=== PATIENT | male | born 1955 | race Caucasian/White ===

== ENCOUNTER 2021-03-14 08:02 | Emergency (ER) | payer MEDICARE, SELFPAY ==
[2021-03-14 08:11] VITALS: BP 117/95; PULSE 66; RESP 16; TEMP 36.8; O2SAT 99
--- NOTE | 2021-03-14 08:18 | ED.WOUNDLAC ---
HPI - Wound/Laceration General Chief Complaint: Wound/Laceration Stated Complaint: FINGER LACERATION Time Seen by Provider: 03/14/21 08:10 Source: patient and RN notes reviewed History of Present Illness HPI narrative: Patient is a 65-year-old male who presents the urgent care with complaints of a laceration to the right third digit. Patient states that he was doing dishes last night and cut himself with a glass. Patient states that he has been putting gauze on it and it continues to bleed. No other acute complaints or injuries. No acute distress noted. Patient aware of the plan of care. Some parts of this dictation were generated by voice recognition software and may contain typographical and/or grammatical inaccuracies. Related Data Home Medications Medication Instructions Recorded Confirmed aspirin 81 mg tablet,delayed 81 mg PO DAILY 11/25/19 release Allergies Allergy/AdvReac Type Severity Reaction Status Date / Time No Known Allergies Allergy Mild Unverified 08/21/17 08:20 Review of Systems Review of Systems: Narrative: CONSTITUTIONAL: Denies fever, chills, or sweats. EYES: Denies visual changes, redness, or discharge. ENT: Denies rhinorrhea, congestion, sore throat, or otalgia. CARDIOVASCULAR: Denies chest pain, palpitations, or edema. RESPIRATORY: Denies cough or dyspnea. GASTROINTESTINAL: Denies abdominal pain, nausea, vomiting, or diarrhea. GENITOURINARY: Denies dysuria or hematuria. SKIN: Reports a laceration to the right third digit MUSCULOSKELETAL: Denies back pain, joint pain, or myalgia. NEUROLOGIC: Denies headache, numbness, or weakness. All other systems reviewed are negative, except as documented in HPI. [facility] Past Medical History Medical History Hyperlipidemia Hypertension Family History Family History Mother Cerebrovascular accident, Onset Age: 89 Father Family history of malignant neoplasm, Onset Age: 64 Social History Social History Smoking status: Never smoker Alcohol intake: current Comments At the time of my signature, I reviewed and agree with the nursing past medical, surgical, social, and family history. There is no relevant family history pertinent to the patient complaint. Exam Narrative: Exam Narrative: GENERAL: This is a well-nourished, well-developed patient, in no apparent distress. HEAD: normocephalic, atraumatic. EYES: PERRL. Sclera clear/white. Vision is grossly intact. EARS: External ears normal NOSE: External nose normal with no obvious nasal discharge, nares without redness, no rhinorrhea. THROAT: Mucous membranes moist NECK: Neck supple SKIN: 1 cm avulsed near the DIP of the right third digit. Warm, intact with no suspicious lesions or rash, good texture and turgor. NEURO: awake, alert, and oriented to person, place and time. There were no obvious focal neurologic abnormalities. EXTREMITIES: No clubbing, cyanosis, or edema. Capillary refill less than 2 seconds to right upper extremity with positive strong right radial pulse. Course Vital Signs Vital signs: Vital Signs Temperature 98.2 F 03/14/21 08:11 Pulse Rate 66 03/14/21 08:11 Respiratory Rate 16 03/14/21 08:11 Blood Pressure 117/95 H 03/14/21 08:11 Pulse Oximetry 99 03/14/21 08:11 Temperature 98.2 F 03/14/21 08:11 Pulse Rate 66 03/14/21 08:11 Respiratory Rate 16 03/14/21 08:11 Blood Pressure 117/95 H 03/14/21 08:11 Pulse Oximetry 99 03/14/21 08:11 Reviewed?patient is informed that they may have pre-hypertension or hypertension based on a blood pressure reading in the department. I recommend the patient call the primary care provider listed on their discharge instructions or a physician of their choice this week to arrange follow-up for further evaluation of possible pr
== END 2021-03-14 08:35 | disposition home or self-care (01) ==
PROVIDERS: Emergency Provider Nurse Practitioner Family; PCP Internal Medicine
DX: S61.202A Unspecified open wound of right middle finger without damage to nail, initial encounter (principal); W25.XXXA Contact with sharp glass, initial encounter; E78.5 Hyperlipidemia, unspecified; I10 Essential (primary) hypertension
CPT/HCPCS: 99212; G0463

== ENCOUNTER 2022-06-22 09:13 | Outpatient (CLI) | payer MEDICARE, SELFPAY ==
[2022-06-25 22:19] LABS: Percent Free Prostate Spec Ag 18 % (>25)
== END 2022-06-22 09:14 | disposition home or self-care (01) ==
LOC: ANHGOSHLAB 09:15
PROVIDERS: PCP Internal Medicine; Visit Provider Family Medicine
DX: R97.20 Elevated prostate specific antigen [PSA] (principal)
CPT/HCPCS: 36415; 84153; 84154

== ENCOUNTER 2022-09-28 13:14 | Outpatient (CLI) | payer MEDICARE, SELFPAY ==
--- NOTE | ~2022-09-28 | PE_ITS ---
EXAMINATION: PET_PETPSMAST_PT DATE: 09/28/2022 15:46 INDICATION: Malignant neoplasm of prostate. TECHNIQUE: 10.91 mCi of piflufolastat F-18 was administered intravenously. Low dose computed tomograp hy (CT) images were acquired from the base of the brain to the proximal thighs for attenuation correc tion and anatomic localization. Automated exposure control was employed. Dose-length product (DLP) wa s 901 mGy-cm. Positron emission tomography (PET) images were acquired in the same distribution. COMPARISON: None FINDINGS: Head/neck: There is misregistration of the CT and PET images in the head and neck. There are no patho logically enlarged lymph nodes. Chest: There is no pneumonia or pleural effusion. The heart size is normal. No pericardial effusion. There are coronary artery calcifications. There are no pathologically enlarged lymph nodes. Abdomen/pelvis/proximal thighs: The liver, gallbladder, spleen, and pancreas are normal. There is dec reased activity in the mid zone of the right kidney laterally and posteriorly. There are masses in th e right perinephric fat measuring up to 2.4 cm with increased activity. There is a 2 mm stone in righ t kidney. There is moderate right hydronephrosis and proximal hydroureter. The proximal right renal c ollecting system measures soft tissue attenuation. There is fat stranding in the right retroperitoneu m. There are 4 mm and 2 mm stones in left kidney. The prostate is moderately enlarged with focally in creased activity on the left, which may be the primary malignancy. There is diverticulosis of the col on without evidence of diverticulitis. There are no dilated loops of bowel. There is aortocaval lymph adenopathy with a community engagement representative node measuring 3.4 x 1.7 cm. There is a right inguinal hernia contai derek fat. There is a 10 mm nonaggressive lytic lesion with sclerotic margin in right ilium, likely be nign. IMPRESSION: 1. Moderate right hydronephrosis with soft tissue attenuation in the proximal collecting system, mult iple masses in the right perinephric fat with increased activity, and aortocaval lymphadenopathy with increased activity, consistent with metastatic disease. Consider abdomen and pelvis CT without and w ith contrast (CT urogram). Reviewed, dictated and finalized at location A. IOPULMONARY SPECIALIST IMPRESSION: 1. Moderate right hydronephrosis with soft tissue attenuation in the proximal c ollecting system, multiple masses in the right perinephric fat with increased a ctivity, and aortocaval lymphadenopathy with increased activity, consistent wit h metastatic disease. Consider abdomen and pelvis CT without and with contrast (CT urogram).
== END 2022-09-28 13:15 | disposition home or self-care (01) ==
PROVIDERS: PCP Family Medicine; Visit Provider Urology
DX: C61 Malignant neoplasm of prostate (principal)
CPT/HCPCS: 78815; A9595

== ENCOUNTER 2022-10-20 08:05 | Outpatient (CLI) | payer MEDICARE, SELFPAY ==
--- NOTE | ~2022-10-20 | XR_ITS ---
XR abdomen/kub 1V 10/20/2022 08:31 INDICATION: Right renal mass TECHNIQUE: KUB COMPARISON: PET scan dated 09/28/2022 FINDINGS: Bowel gas pattern is normal. There is no evidence of free air, mass, organomegaly, ascites or obstruction. No abnormal calculi are seen. The bones appear intact. There are right pelvic phle boliths. Moderate lumbar spondylosis. IMPRESSION: 1: No acute abdominal abnormality identified. Reviewed, dictated and finalized at location A. ICAL SUPERVISOR
--- NOTE | ~2022-10-20 | CT_ITS ---
EXAMINATION: CT abdomen pelvis wo/w con DATE: 10/20/2022 08:48 INDICATION: Right kidney mass. TECHNIQUE: Computed tomography (CT) of the abdomen and pelvis was performed without and with 100 mL O mnipaque 350 intravenous contrast. Automated exposure control and iterative reconstruction technique were employed. The dose-length product was 1609.29 mGy-cm. COMPARISON: PET/CT 09/28/2022 FINDINGS: The visualized portions of the lung bases demonstrate mild atelectasis. No pleural effusion . The heart size is normal. No pericardial effusion. There is a 7 mm cyst in the liver. The gallbladd er, spleen, pancreas, and left adrenal gland are normal. There is a large infiltrative mass in the ri ght kidney that is contiguous with urothelial thickening in the right ureter and soft tissue in the p erinephric space. There are multiple masses in the right retroperitoneum. There is asymmetric edema i n the right retroperitoneum. There is a 2 mm stone in right kidney. There is mild right hydronephrosi s. There are discontinuous masses in the proximal right ureter. There are bilateral inguinal hernias containing fat. The prostate is moderately enlarged. There is diverticulosis of the colon without toi dence of diverticulitis. The appendix is normal. There are no dilated loops of bowel. There is aortoc aval lymphadenopathy. There is trace pelvic ascites. There is moderate lumbar spondylosis. IMPRESSION: 1. Large infiltrative mass of the right kidney, masses in the proximal right ureter, right retroperit joseph masses, and aortocaval lymphadenopathy, consistent with malignancy such as urothelial carcinoma and metastatic disease. Reviewed, dictated and finalized at location A. ESTATE BROKER ASSOCIATE IMPRESSION: 1. Large infiltrative mass of the right kidney, masses in the proximal right ur eter, right retroperitoneal masses, and aortocaval lymphadenopathy, consistent with malignancy such as urothelial carcinoma and metastatic disease.
[2022-10-20 09:35] LABS: Estimated Glomerular Filt Rate 55
== END 2022-10-20 08:06 | disposition home or self-care (01) ==
PROVIDERS: PCP Family Medicine; Visit Provider Urology
DX: N28.89 Other specified disorders of kidney and ureter (principal)
CPT/HCPCS: 74018; 74178; Q9967

== ENCOUNTER 2024-05-07 07:41 | Day surgery (SDC) | payer MEDICARE, SELFPAY ==
[2024-04-18 09:18] VITALS: BMI 27.7
--- NOTE | 2024-05-06 07:30 | WPDANESEPPF ---
Anes - Initial Pre Proc Eval Procedure: Operation Date: 05/07/24 10:00 Proposed Procedures p Diagnostic Colonoscopy - Indio Fox MD Date/Time: 05/06/24 07:30 Surgeon: Indio Fox MD Pre Op Diagnosis: History of Colon Polyps Patient Data Age: 68 Gender: M Height: 1.88 m Weight: 97.976 kg Allergies Allergy/AdvReac Type Severity Reaction Status Date / Time lisinopril Allergy Other Verified 05/07/24 08:43 Home Medications Medication Instructions Recorded Confirmed Type melatonin 5 mg capsule 5 mg PO QHS PRN Insomnia 11/29/22 05/07/24 History multivitamin (Multiple Vitamins 1 tablet PO DAILY 11/29/22 05/07/24 History tablet) cholecalciferol (vitamin D3) 25 25 mcg PO HS #14 tabs 06/28/23 05/07/24 Rx mcg (1,000 unit) tablet (Vitamin D3) famotidine 20 mg tablet 20 mg PO DAILY #14 tabs 06/28/23 05/07/24 Rx tamsulosin 0.4 mg capsule 0.4 mg PO QAM #14 caps 06/28/23 05/07/24 Rx valacyclovir 500 mg tablet 500 mg PO DAILY #10 tabs 06/28/23 05/07/24 Rx (Valtrex) amlodipine 10 mg tablet 10 mg PO DAILY #100 tabs 02/13/24 05/07/24 Rx clobetasol 0.05 % topical cream 1 applic topical DAILY 03/15/24 05/07/24 History pravastatin 40 mg tablet 40 mg PO DAILY 05/07/24 05/07/24 History Patient hx anesthesia problems: none Family hx anesthesia problems: none Results Review: All pre-operative results and documents have been reviewed as part of the pre-operative evaluation. [facility] Past Medical History Medical History Atrial fibrillation DLBCL (diffuse large B cell lymphoma) GI bleed Hyperlipidemia Hypertension Hypertrophic cardiomyopathy Lower urinary tract symptoms Family History Family History Mother Cerebrovascular accident, Onset Age: 89 Father Family history of malignant neoplasm, Onset Age: 64 Cerebrovascular accident Diabetes mellitus Social History Social History Smoking status: Never smoker Alcohol intake: current Drinks per week: 2 Substance use: never Substance use type: does not use Lack of Transportation: No Lack of Food: Never True Current Housing: I Have Housing Concerned About Future Housing: No Difficulty Paying Gas/Electric Bills: No Difficulty Paying for Meds: No Currently Unemployed: No Education: Bachelor's Degree Difficulty w/ Childcare or Family Care: No Living arrangements: with family Gender identity (if verbalized by the patient): Male Spiritual care concerns: No Anes - Eval Final PreProcedure Day of Procedure 05/06/24 07:30 Patient weight: overweight Heart: regular rate and rhythm Lungs: clear to auscultation Airway: Mallampati scale class II Neurological: alert and oriented Last oral intake: >/= 8 hours ASA classification: III Emergent: no Anesthetic plan: proceed Anesthesia type and monitoring: general GIVS and standard monitoring Results Review: All pre-operative results and documents have been reviewed as part of the pre-operative evaluation. Informed Consent: The patient's anesthetic plan and its attendant risks and benefits were discussed with the patient/family/POA. Questions were solicited and answers provided to the satisfaction of the patient/family/POA.
[2024-05-07 08:45] VITALS: BP 135/82; PULSE 69; RESP 16; TEMP 36.6; O2SAT 100
[2024-05-07] MEDS: LACTATED RINGERS 1,000 ML 150 ML IV CONT (08:47)
--- NOTE | 2024-05-07 09:30 | PM.HPGS ---
History of Present Illness History of Present Illness Consent: Risks, benefits, and alternatives have been discussed and questions answered. Patient agrees to proceed with procedure. Chief complaint: History of Colon Polyps Narrative: Lance Mosqueda is a 68 year old male REFERRED FOR COLON cancer screening. He has a history of polyps. Review of Systems Review of Systems: All systems reviewed & are unremarkable except as noted in HPI and below PMFSH Past Medical History Medical History Atrial fibrillation DLBCL (diffuse large B cell lymphoma) GI bleed Hyperlipidemia Hypertension Hypertrophic cardiomyopathy Lower urinary tract symptoms Family History Family History Mother Cerebrovascular accident, Onset Age: 89 Father Family history of malignant neoplasm, Onset Age: 64 Cerebrovascular accident Diabetes mellitus Social History Social History Smoking status: Never smoker Alcohol intake: current Drinks per week: 2 Substance use: never Substance use type: does not use Lack of Transportation: No Lack of Food: Never True Current Housing: I Have Housing Concerned About Future Housing: No Difficulty Paying Gas/Electric Bills: No Difficulty Paying for Meds: No Currently Unemployed: No Education: Bachelor's Degree Difficulty w/ Childcare or Family Care: No Living arrangements: with family Gender identity (if verbalized by the patient): Male Spiritual care concerns: No Meds Home Medications and Allergies Home Medications Medication Instructions Recorded Confirmed Type melatonin 5 mg capsule 5 mg PO QHS PRN Insomnia 11/29/22 05/07/24 History multivitamin (Multiple Vitamins 1 tablet PO DAILY 11/29/22 05/07/24 History tablet) cholecalciferol (vitamin D3) 25 25 mcg PO HS #14 tabs 06/28/23 05/07/24 Rx mcg (1,000 unit) tablet (Vitamin D3) famotidine 20 mg tablet 20 mg PO DAILY #14 tabs 06/28/23 05/07/24 Rx tamsulosin 0.4 mg capsule 0.4 mg PO QAM #14 caps 06/28/23 05/07/24 Rx valacyclovir 500 mg tablet 500 mg PO DAILY #10 tabs 06/28/23 05/07/24 Rx (Valtrex) amlodipine 10 mg tablet 10 mg PO DAILY #100 tabs 04/02/24 06/25/24 Rx clobetasol 0.05 % topical cream 1 applic topical DAILY 03/15/24 05/07/24 History pravastatin 40 mg tablet 40 mg PO DAILY 05/07/24 05/07/24 History Allergies Allergy/AdvReac Type Severity Reaction Status Date / Time lisinopril Allergy Other Verified 05/07/24 08:43 Vital Signs Vital Signs - 24 hr 05/07/24 08:45 Temperature 36.6 C Pulse Rate 69 Respiratory Rate 16 Blood Pressure 135/82 Pulse Oximetry 100 Oxygen Delivery Room Air Exam Resp: Auscultation: clear to auscultation bilaterally Cardio: Rate: regular rate Rhythm: regular rhythm GI: GI Palp: Yes Soft to palpation and No Tenderness to palpation present (GI) Assessment and Plan Assessment and plan (1) Colon cancer screening: Code(s): Z12.11 - Encounter for screening for malignant neoplasm of colon Status: Acute Assessment and Plan: Colonoscopy with possible biopsy or polypectomy or cautery or injection of substances.
[2024-05-07 10:01] VITALS: BP 108/68; PULSE 64; RESP 18; O2SAT 97
[2024-05-07 10:11] VITALS: BP 101/72; PULSE 58; RESP 16; O2SAT 98
--- NOTE | 2024-05-07 10:37 | WPDANESPN ---
Anes - Prog Note Post-Op Date/Time: 05/07/24 10:37 Cardiovascular status: normal Respiratory status: normal Airway patency: baseline Mental status: baseline Post-Op hydration status: normal Vital Signs: Last Vital Signs Temp 36.6 C 05/07/24 08:45 Pulse 58 L 05/07/24 10:11 Resp 16 05/07/24 10:11 BP 101/72 05/07/24 10:11 Pulse Ox 98 05/07/24 10:11 O2 Del Method Room Air 05/07/24 10:11 Pain Score (VAS): 0 I/O: Intake & Output 05/06/24 05/07/24 05/07/24 23:59 07:59 15:59 Intake Total 250 Balance 250 Post-procedural complaints: none Patient Feedback: Patient satisfied with anesthetic care. Other Findings: Patient vital signs back to baseline. Patient denies nausea and vomiting. Patient's pain under control. Patient OK for discharge.
== END 2024-05-07 10:30 | disposition home or self-care (01) ==
PROVIDERS: PCP Family Medicine; Visit Provider Internal Medicine Gastroenterology
PROC: 0DJD8ZZ Inspection of Lower Intestinal Tract, Via Natural or Artificial Opening Endoscopic (ICD-10-PCS; CPT 45378; principal; 2024-05-07 10:00)
DX: Z86.010 Personal history of colon polyps (principal); K57.30 Diverticulosis of large intestine without perforation or abscess without bleeding; K64.8 Other hemorrhoids
CPT/HCPCS: 45378

== ENCOUNTER 2024-07-19 08:15 | Outpatient (CLI) | payer MEDICARE, SELFPAY ==
[2024-07-19 14:52] LABS: Vitamin D 25 Hydroxy 41.6 ng/mL
[2024-07-19 15:11] LABS: Cholesterol 149 mg/dL (0-200); HDL Direct 42 mg/dL; Triglycerides 136 mg/dL (<150)
[2024-07-19 15:21] LABS: LDL Cholesterol Direct 65 mg/dL
== END 2024-07-19 08:16 | disposition home or self-care (01) ==
PROVIDERS: PCP Family Medicine; Visit Provider Family Medicine
DX: E78.5 Hyperlipidemia, unspecified (principal); E55.9 Vitamin D deficiency, unspecified; Z13.220 Encounter for screening for lipoid disorders
CPT/HCPCS: 36415; 80061; 82306

== ENCOUNTER 2025-08-12 07:57 | Outpatient (CLI) | payer MEDICARE, SELFPAY ==
--- OUTSIDE RECORDS SUMMARY | 2025-08-12 08:07 | XMS_ITS | Clinical Summary ---
Author Organization [facility] Address [address], [facility] [address] [place] [address] Phone Care Team Providers Care Watch Technician Name Role Phone Unavailable Primary Care Provider Unavailabl e Medications polyethylene glycol (MIRALAX) Powder Use entire 255g bottle with 64oz of clear liquid as directed for colonoscopy prep. 255 g 0 7 Active Social History Tobacco Use Types Packs/Day Years Used Date Smoking Tobacco: Never Assessed Sex and Gender Information Value Date Recorded Sex Assigned at Not on file Legal Sex Male 11:54 PM CDT Gender Identity Not on file Sexual Orientation Not on file Plan of Treatment Health Maintenance Due Date Last Done Comments Hepatitis C Virus (HCV) Screening 1955 TdaP Immunization 1955 Cologuard 2000 Immunochemical Fecal Occult Blood 2000 Pneumococcal Immunization (5 0+ years) (1 of 1 - PCV) 2005 Zoster Immunization (1 of 2) 2005 Colonoscopy 10/14/2021 10/14/2011 Colorectal Cancer Screening 10/14/2021 Influenza Immunization (#1) 2025 SARS-COV-2 Immunization ( - season) 2025 Respiratory Syncytial Virus (RSV) Immunization (Adult) (1 - 1-dose 75+ series) 2030 Hepatitis B Immunization Aged Out No longer eligible based on patient's age to complete this topic Human Papillomavirus (HPV) Immunization Aged Out No longer eligible b ased on patient's age to complete this topic Meningococcal Immunization (ACWY) Aged Out No longer eligible based on patient's age to complete this topic Rotavirus Immunization Aged Out No lo nger eligible based on patient's age to complete this topic Procedures Procedure Name Priority Date/Time Associated Diagnosis Comments HM COLONOSCOPY Routine 10/14/2011 from Last 3 Months or Most Recently Relevant to Health Maintenance Results * COLONOSCOPY (10/14/2011) Darian Le DO PROCEDURE/MINOR SURGICAL ORDERA BLES Final Result from Last 3 Months or Most Recently Relevant to Health Maintenance Insurance [facility]
--- OUTSIDE RECORDS SUMMARY | 2025-08-12 08:07 | XMS_ITS | Encounter Summary ---
Author Organization [facility] Address [address] [place] [address] Phone Care Team Providers Care Bead Preparer Name Role Phone Darrin Cagle MD Unavailable [phone] Shanda Mccullough MD Unavailable [phone] Marvin Allen DO Primary Care Provider Gilma Hutchins MD Unavailable [phone] Jarett Temple MD Primary Care Provider Encounter Details Date Type Department Care Team (Latest Contact Info) Description 06/22/2022 Orders Only [facility] Scanning, Provider Social History Tobacco Use Types Packs/Day Years Used Date Smoking Tobacco: Never Assessed Sex and Gender Information Value Date Recorded Sex Assigned at Not on file 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 Gender Identity Not on file Sexual Orientation Not on file documented as of this encounter Plan of Treatment Not on file documented as of this encounter Procedures Procedure Name Priority Date/Time Associated Diagnosis Comments SCAN - LABS 06/22/2022 documented in this encounter Results * SCAN - LABS (06/22/2022) us Provider Scanning Final Result documented in this encounter Visit Diagnoses Not on filedocumented in this encounter Additional Health Concerns Infection Onset Date Last Indicated Resolved Time COVID: Suspected 01/30/2023 01/30/2023 01/30/2023 7:35 PM CDT COVID: Suspected 07/07/2023 07/07/2023 07/07/2023 6:42 PM CDT COVID: Suspected 07/12/2023 07/12/2023 07/12/2023 6:57 PM CDT COVID: Suspected 09/06/2023 09/06/2023 09/06/2023 6:19 PM CDT documented as of this encounter Care Teams Bead Preparer Relationship Specialty Start Date End Date Marvin Allen DO [address] [facility] [address] [place] [address] PCP - General Family Medicine 10/31/22 02/24/25 Jarett Temple MD [address] [facility] [address] [place] [address] PCP - General Family Practice 02/25/25 Darrin Cagle MD [address] [facility] [place] [id number] Urology 10/31/22 Shanda Mccullough MD [address] [facility] [address] [place] [address] Medical Oncologist/Family Reunification Specialist Medical Oncology 02/01/23 Gilma Hutchins MD [address] [facility] [address] [place] [address] Consulting Physician Medical Oncology 04/14/23 documented as of this encounter
--- OUTSIDE RECORDS SUMMARY | 2025-08-12 08:07 | XMS_ITS | Clinical Summary ---
Author Organization [facility] Address Formerly [facility] [place] [address] Care Team Providers Care Orthopedic Nurse Name Role Phone Darrin Cagle MD Unavailable [phone] Shanda Mccullough MD Unavailable [phone] Gilma Hutchins MD Unavailable [phone] Jarett Temple MD Primary Care Provider Allergies Active Allergy Reactions Criticality Noted Date Comments Lisinopril Angioedema,Other (See comments) High 11/13 Medications pravastatin (PRAVACHOL) 40 mg tablet Take 1 tablet (40 mg total) by mouth every morning 01/27/2016 Active multivitamin tablet Take 1 tablet by mouth every morning Active cholecalciferol (VITAMIN D-3) 2000 unit tablet Take 1 tablet (2,000 Units total) by mouth every evening Active amLODIPine (NORVASC) 10 mg tablet Take 1 tablet (10 mg total) by mouth every morning Active METOPROLOL TARTRATE ORAL 2 (two) times a day 06/28/2023 Active Active Problems Problem Noted Date Diagnosed Date Sepsis 01/09/2025 Assessment & Plan (01/09/2025 2:41 AM SPARMAKER): The patient presented for his routine appointment at the BMT clinic where he started complaining of intermittent chills. Noted to have a low-grade temperature above 38 degrees centigrade Blood culture obtained currently growing Enterobacter Lactate within normal limits Chest x-ray, RVP and UA negative Suspect source secondary to port. Denies any diarrhea, constipation or any other localizing symptoms Would defer further imaging at this time Endorses a recent trip [place] Denies any symptoms either during his vacation or after or right prior to his appointment Would continue with meropenem IV pending sensitivities Follow up daily blood cultures Can consider port removal of the BMT team agrees Hypernatremia 07/20/2023 Assessment & Plan (07/20/2023 4:06 AM CDT): Rising Sodium noted during admission. Likely secondary to altered tubular function given recent ATN. Ordered urine sodium and urine osmolarity. Improved with D5W. Will have patient repeat labs in week on discharge to ensure recovery Paroxysmal atrial fibrillation 07/08/2023 Assessment & Plan (07/08/2023 6:55 PM CDT): On Amiodarone 200 every day & metoprolol 25 bid at home. Currently on sinus rhythm. - c/w home amiodarone 200 every day. - holding metop. Depressive disorder 06/17/2023 Assessment & Plan (06/17/2023 10:10 AM CDT): Patient with recent cancer diagnosis, ?AUD presenting with unspecified duration of low mood, poor sleep, poor appetite, decreased concentration, inappropriate feelings of guilt, passive SI in the setting hospitalization for said cancer, sx now improving. Given unclear duration, will give a provisional diagnosis of unspecified depressive disorder, though there is concern for MDD. Demoralization should also be considered on the differential, especially given the context of patient's depressive symptoms, though the number and severity patient's depressive symptoms raise concern for a distinct depressive entity. Given history of alcohol use, substance induced depressive disorder is also in the differential, lower suspicion given timeline of depressive symptoms this patient is unlikely to be consuming alcohol while admitted. No evidence of manic or psychotic disorder. Patient may benefit from an antidepressant, but is currently reluctant to start one. No indication at this time for involuntary treatment, especially as patient reports symptoms improving. We will continue to discuss treatment options with the patient and recommend ambulatory referral to [facility] Psychiatry on discharge. Patient likely to benefit from [facility] counseling consult while inpatient. Please consider bundling care to reduce nighttime interruptions and offering ramelteon p.r.n. term improved sleep, as patient reports adequate sleep has been effective in improving his overall mood. Recommendations: - defer antidepressant medication - bundle nighttime care - offer ramelteon q.h.s. p.r.n. for sleep - [facility] counseling consult - ambulatory referral to [facility] Psychiatry on discharge (please specify Dr. Marino Russell, oncologic Psychiatry) - In case of acute agitation, may consider Haldol 5 mg PO TID PRN, or Haldol 5 mg IM TID PRN if severely agitated or refusing PO. Please avoid administering benzodiazepines within 1 hour of olanzapine administration given risk of acute respiratory depression. Anemia 06/04/2023 Assessment & Plan (07/08/2023 7:16 PM CDT): No overt bleeding but pt tapered down from 8 to 6.7 on admission 2/2 recovery from SCT and dilution 1 u PRBC given Assessment & Plan (06/04/2023 8:09 PM CDT): Due to anti-neoplastic rx. - Tx for Hb<8 or plts <10K. BPH (benign prostatic hyperplasia) 06/04/2023 Assessment & Plan (06/04/2023 8:11 PM CDT): - Continue home tamsulosin. Autologous donor of stem cells 05/11/2023 ELIGIO (acute kidney injury) 04/15/2023 Assessment & Plan (01/09/2025 2:52 AM SPARMAKER): On admission, BUN/Cr- 21/1.38, b/l Cr-0.9 Noted to be euvolemic on admission Would obtain urine lytes for further assessment Monitor BMP closely Started on gentle IV fluid Assessment & Plan (07/12/2023 3:54 PM CDT): Up trending Cr noted 07/05 at 2.53; baseline Cr 1.20. On admission 2.60. Hx of R kidney atrophy, most recent CT A/P 06/14/23. Now improving Suspecting ELIGIO with ATN component 2/2 to volume depletion given decrease oral intake after recent transplant. Non-oliguric - despite giving IV fluids, the patient's ELIGIO has not improved as quickly as expected. May have developed some ATN secondary to sepsis - FeNa 2.9% consistent with intrinsic renal disease - Ultrasound of the kidney shows asymmetrically enlarged left kidney with slight atrophy of right kidney and no evidence of hydronephrosis - Will hold nephrology consult at this time as there is no concern for dialysis - will need close monitoring of creatinine levels on discharge Assessment & Plan (04/17/2023 2:25 PM CDT): Cr sasha to 2.72 from 0.8 - likely methotrexate toxicity - nephrology on board; keep urine ph>7 with bicarb drip; may need to slow bicarb rate or dose to decrease Na and alkali load. Leucovorin IV Prostate cancer 04/13/2023 Assessment & Plan (07/08/2023 6:57 PM CDT): Prostate biopsy on 09/04/2022 showing [place] 6 in 3 of the 15 cores. Pending treatment for his prostate cancer once he has completed his stem cell transplant. - currently on observation. - normal psa and testosterone levels on admission. Assessment & Plan (06/04/2023 8:10 PM CDT): Dx'ed in 08/2022 w/ [place] 6 in 3/15 cores. - Currently on observation. - Rx pending completion of SCT. Assessment & Plan (04/14/2023 2:17 PM CDT): diagnosed 09/03/2022, Jacqueline 6, plan observation until completion of treatment for lymphoma. PSA 8.5. Iron deficiency anemia 12/08/2022 Assessment & Plan (01/09/2025 2:51 AM SPARMAKER): On admission, H/H- Monitor CBC closely Diffuse large B-cell lymphom a of lymph nodes of multiple regions 11/29/2022 Assessment & Plan (01/09/2025 2:51 AM SPARMAKER): He was diagnosed with DLBCL in 11/2022. The patient previously received 6 cycles of DA-EPOCH-R along with 8 cycles of intrathecal methotrexate followed by 1 cycle of high-dose methotrexate for SLOT SERVICE SPECIALIST prophylaxis. He then underwent autologous BEAM SCT on 06/02/2023. Most recent PET-CT from 07/2024 was remarkable for ongoing complete metabolic response. Currently remains on surveillance with complete remission. F/u BMT recs Hyperlipidemia 08/22/2016 Assessment & Plan (01/09/2025 2:39 AM SPARMAKER): Continue pravastatin 40 mg p.o. q.d. Assessment & Plan (07/08/2023 7:10 PM CDT): C/w home statin. Assessment & Plan (06/04/2023 8:11 PM CDT): - Continue home pravastatin. Assessment & Plan (04/13/2023 4:24 PM CDT): Cont statin Hypertension 01/23/2015 Overview (02/22/2018): Impression: good Assessment & Plan (01/09/2025 2:39 AM SPARMAKER): Continue amlodipine 10 mg p.o. q.d. Assessment & Plan (07/14/2023 10:17 PM CDT): On amlodipine 10 at home. Also on amio and metoprolol for Afib. Reports recent BPs normotensive at home, and endorsing lightheadedness when changing positions quickly. Orthostatic on admission (diastolic change 62->48). - IVF as above. - c/w home amiodarone 200 every day. - initially had help metop and norvascin setting of sepsis, will resume Assessment & Plan (06/04/2023 8:11 PM CDT): - Continue home amlodipine. Assessment & Plan (04/13/2023 4:24 PM CDT): Continue amlodipine Resolved Problems Problem Noted Date Diagnosed Date Resolved Date Chemotherapy-induced neutropenia 09/06/2023 01/05/2024 Stem cells transplant status 06/04/2023 01/05/2024 Assessment & Plan (06/04/2023 8:08 PM CDT): S/p BEAM auto-SCT (D0: 06/02) DLBCL (diffuse large B cell lymphoma) 05/26/2023 10/02/2023 Assessment & Plan (07/08/2023 6:56 PM CDT): Diagnosed 11/23/22 (initial site R kidney ad perirenal). He achieved a complete remission after 6 cycles of dose adjusted EPOCH- R and is now day 35 after consolidative BEAM/autologous stem cell transplant (06/02/23). Transplant complicated by neutropenic fever, mucositis, diarrhea, GI bleed ileus, and AFib with RVR. Denies signs/symptoms GIB. Restaging PET-CT scan around day 100. On going count recovery from the toxicities of transplant. - Transfuse per BMT protocol. - holding VTE prophy due to anemia. - OI prophylaxis: c/w valtrex Assessment & Plan (06/04/2023 8:08 PM CDT): Dx'ed in 11/2022 via Rt kidney biopsy w/ DLBCL withatypical MYC, bulky stage IIEA, IPI 2, SLOT SERVICE SPECIALIST IPI 3, initial sites of disease right kidney, perirenal nodes, RP LNopathy. S/p 6 cycles of DA-EPOCH-R (11/2022-03/2023) w/ IT MTX (x8) w/ CR post C2, f/b 1 cycle of HD-MTX (04/2023, further doses dc'ed given ELIGIO w/ MTX). Follows w/ Dr. Mccullough and Dr. Hutchins. - Admitted for BEAM auto-SCT (D0: 06/02), D+2 today. - OI ppx w/ valtrex - Supportive care w/ PRN anti-emetics, anti-diarrheals and pain meds for mucositis. DLBCL (diffuse large B cell lymphoma) 04/13/2023 04/25/2023 Assessment & Plan (04/16/2023 11:10 AM CDT): atypical MYC, diagnosed 11/23/2022 with a right kidney biopsy, bulky stage IIEA, IPI 2, SLOT SERVICE SPECIALIST IPI 3, initial sites of disease right kidney, perirenal nodes or soft tissue nodules, retroperitoneal lymphadenopathy. He has finished 6 cycles of DA R-EPOCH and IT -MTX x8. He is here for C1D1 of HD MTX. Discussed care with med onc. See under ELIGIO for plan for methotrexate toxicity OI ppx with acyclovir Neutropenic fever 01/30/2023 10/02/2023 Neulasta for neutropenia prophylaxis 11/30/2022 10/02/2023 Renal mass 11/19/2022 12/29/2022 Mass of skin 04/29/2011 12/29/2022 Encounters Date Type Department Care Team Description 07/09/2025 11:15 AM CDT Infusion [facility] - Infusion [address] [facility] [address] [place] [address] Diffuse large B-cell lymphoma of lymph nodes of multiple regions (HCC) (Primary Dx); Autologous donor of stem cells 07/09/2025 10:30 AM CDT Office Visit [facility] Medicine Oncology [facility] [facility] [address] [place] [address] Shanda Mccullough MD Diffuse large B-cell lymphoma of lymph nodes of multiple regions (HCC) (Primary Dx); Autologous donor of stem cells 07/09/2025 9:30 AM CDT Lab [facility] Medicine Oncology Lab [address] [facility] [address] [place] [address] Diffuse large B-cell lymphoma of lymph nodes of multiple regions (HCC) 07/09/2025 8:30 AM CDT Clinical Support [facility] [place] - Lab Collection [address] [facility] [address] [place] [address] Diffuse large B-cell lymphoma of lymph nodes of multiple regions (HCC); Prostate cancer (HCC) 07/09/2025 7:24 AM CDT - 07/09/2025 11:59 PM CDT Hospital Encounter [facility] [place] - [place] [address] [facility] [address] [place] [address] Diffuse large B-cell lymphoma of lymph nodes of multiple regions (HCC) Discharge Disposition: Discharge to home or self care 07/03/2025 Orders Only [facility] Oncology [facility] [address] [phone] Mayra Valencia, RN Autologous donor of stem cells (Primary Dx); Diffuse large B-cell lymphoma of lymph nodes of multiple regions (HCC) 07/01/2025 Orders Only [facility] [facility] [address] [phone] Mayra Valencia, RN Autologous donor of stem cells (Primary Dx); Diffuse large B-cell lymphoma of lymph nodes of multiple regions (HCC) from Last 3 Months Immunizations Immunization Administration Dates Next Due DTaP 04/03/2024,01/03/2024 Hep B, Dialysis 07/03/2024,04/03/2024,01/03/2024 Hib (PRP-T) 07/03/2024,04/03/2024,01/03/2024 IPV 07/09/2025,04/03/2024,01/03/2024 Influenza, Quad, Adjuvantate d, Intramuscular 09/16/2022 Influenza, Quadrivalent, Aggie l Culture-based MDCK, Preservative Free, Antibiotic Free, Intramuscular 08/31/2018 Influenza, Quadrivalent, Spl it, Preservative Free, Intramuscular 09/15/2020,08/19/2016 Influenza, Trivalent, Adjuva nted, Intramuscular 09/18/2024 Influenza, Trivalent, Preser vative Free, Intramuscular 09/10/2017 Influenza, Trivalent, Split, Preservative Free, Intradermal 08/13/2016 MMR 07/09/2025 Pneumococcal Conjugate Pcv20 10/02/2024, 07/03/2024,04/03/2024,01/03 RSV, Bivalent, Protein Subun it Rsvpref, Diluent (Abrysvo) 07/03/2024 Tdap 07/03/2024,07/12/2017,11/13/2010 ZOSTER LIVE 01/27/2016 ZOSTER Recombinant 04/03/2024,01/03/2024 Surgical History Surgery Date Site/Laterality Comments PORT PLACEMENT CHEST >5 YEARS 12/07/2022 N/A TUNNELED LINE PLACEMENT > 5 YEARS 05/22/2023 N/A REMOVE TUNNELED LINE 06/21/2023 Left PORT REMOVAL 01/09/2025 N/A Medical History Medical History Date Comments HTN (hypertension) HLD (hyperlipidemia) Non Hodgkin's lymphoma (HCC) Family History Medical History Relation Name Comments Diabetes Father Family history of diabetes mellitus - (Added by TW Conv) Cancer Mother Cancer of unkno wn origin - (Added by TW Conv) Stroke Mother Family history of cerebrovascular accident - at 78 (Added by TW Conv) Relation Name Status Comments Father Mother Social History Tobacco Use Types Packs/Day Years Used Date Smoking Tobacco: Never Passive Smoke Exposure: Never Smokeless Tobacco: Never Tobacco Cessation:Counseling Given: Not Answered OASIS D0700: Social Isolation Answer Da te Recorded Frequency of experiencing loneliness or isolatio n Rarely 07/23/2023 OASIS A1250: Transportation Answer Date Recorded Lack of Transportation (Medical) No 07/23/2023 Lack of Transportation (Non-Medical) No 07/23/2023 Patient Unable or Declines to Respond No 07/23/2023 OASIS B1300: Health Literacy Answer Price e Recorded Frequency of needing help to read materials from doctor or pharmacy Never 07/23/2023 Humiliation, Afraid, Rape, and Kick questionnair e Answer Date Recorded Within the last year, have y ou been afraid of your partner or ex-partner? No 07/08/2023 Within the last year, have y ou been humiliated or emotionally abused in other ways by your partner or ex-partner? No Within the last year, have y ou been kicked, hit, slapped, or otherwise physically hurt by your partner or ex-partner? No 07/08/2023 Within the last year, have y ou been raped or forced to have any kind of sexual activity by your partner or ex-partner? No 07/08/2023 Social Connection and Isolation Panel Answer Date Recorded In a typical week, how many times do you talk on the phone with family, friends, or neighbors? More than three times a week 07/08/2023 How often do you get togethe r with friends or relatives? More than three times a week 07/08/2023 How often do you attend [facility] or confucianism services? 1 to 4 times per year 07/08/2023 Do you belong to any clubs o r organizations such as mu-ism groups, unions, fraternal or athletic groups, or school groups? No 07/08/2023 How often do you attend meet ings of the clubs or organizations you belong to? Never 07/08/2023 Are you , , di vorced, , never , or living with a partner? 07/08/2023 AUDIT-C Answer Date Recorded Q1: How often do you have a drink containing alc ohol? 2-4 times a month 02/14/2025 Q2: How many drinks containi ng alcohol do you have on a typical day when you are drinking? 1 or 2 02/14/2025 Q3: How often do you have si x or more drinks on one occasion? Never 02/14/2025 Overall Financial Resource Strain (CARDIA) Answe r Date Recorded How hard is it for you to pa y for the very basics like food, housing, medical care, and heating? Not hard at all 07/08/2023 PHQ-2 Answer Date Recorded PHQ-2 Total Score 0 07/08/2023 [facility] - Occupational Stress Questionnaire Answer Date Recorded Do you feel stress - tense, restless, nervous, or anxious, or unable to sleep at night because your mind is troubled all the time - these days? Only a little 07/08/2023 Hunger Vital Sign Answer Date Recorded Within the past 12 months, y ou worried that your food would run out before you got the money to buy more. Never true 07/08/20 23 Within the past 12 months, t he food you bought just didn't last and you didn't have money to get more. Never true 07/08/2023 PRAPARE - Transportation Answer Date Re corded In the past 12 months, has l ack of transportation kept you from medical appointments or from getting medications? No 06/14 In the past 12 months, has l ack of transportation kept you from meetings, work, or from getting things needed for daily living? No 07/08/2023 Housing Stability Vital Sign Answer Price e Recorded In the last 12 months, was t here a time when you were not able to pay the mortgage or rent on time? No 07/08/2023 In the last 12 months, how many places have you lived? 1 07/08/2023 In the last 12 months, was t here a time when you did not have a steady place to sleep or slept in a half-way (including now)? No 07/08/2023 Personal Safety Answer Date Recorded Have you ever been in or are you currently in a harmful physical or emotional relationship or is someone making you feel afraid or unsafe? Denies 02/25/2025 Sex and Gender Information Value Date Recorded Sex Assigned at Not on file Legal Sex Male 4:58 PM SPARMAKER Gender Identity Not on file Sexual Orientation Not on file Obstetrics History Last Filed Vital Signs Vital Sign Reading Time Taken Comments Blood Pressure 132/81 07/09/2025 9:27 AM CDT Pulse 60 07/09/2025 9:27 AM CDT Temperature 36.2 C (97.2 F) 07/09/2025 9:27 AM CDT Respiratory Rate 18 07/09/2025 9:27 AM CDT Oxygen Saturation 98% 07/09/2025 9:27 AM CDT Inhaled Oxygen Concentration - - Weight 106.9 kg (235 lb 9.6 oz) 07/09/2025 9:27 AM CDT Height 185.4 cm (6' 1) 02/25/2025 9:04 AM CDT Body Mass Index 31.08 02/25/2025 9:04 AM CDT Plan of Treatment Health Maintenance Due Date Last Done Comments Colon Cancer Screening-Colonoscopy 1955 Well Visit 65+ 2020 Depression Screening 07/07/2024 07/07/2023, 07/07/2023, 05/19/2023, Additional history exists Covid-19 Vaccine (7 - Pfizer risk season) 2025 09/18/2024, 10/13/2023, 04/18/2022, Additional history exists Influenza Vaccine (#1) 2025 , 09/16/2022, 09/15/2020, Additional history exists Fall Risk Assessment 02/25/2026 02/25/2025 Prostate Cancer Screening-PSA 07/09/2027, 04/09/2025, 10/02/2024, Additional history exists DTaP/Tdap/Td Vaccine (6 - Td or Tdap) 07/03/2034 07/03/2024, 04/03/2024, 01/03/2024, Additional history exists Hepatitis C Screening Completed 11/30/2022 Zoster Vaccine Completed 04/03/2024, 12/15, 01/27/2016 Hepatitis B Screening Completed 10/02/2024 , 07/03/2024, 04/03/2024, Additional history exists Pneumococcal vaccine 65+ Completed 024, 07/03/2024, 04/03/2024, Additional history exists Medical Devices Implanted Type Area Mine Inspector Federal Device Identifier Shelf Expiration Date Model / Serial / Lot [employer] Xcela Power Port 8fr [id number] - [id number] Implanted:Qty: 1 on 12/07/2022 at [facility] [employer] 08/24/2027 [id number] / / [id number] Procedures Procedure Name Priority Date/Time Associated Diagnosis Comments EGFR Routine 07/09/2025 8:08 AM CDT Diffuse large B-cell lymphoma of lymph nodes of multiple regions (HCC) DIFFERENTIAL AUTO Routine 07/09/2025 8:0 8 AM CDT Diffuse large B-cell lymphoma of lymph nodes of multiple regions (HCC) PSA DIAGNOSTIC Routine 07/09/2025 8:08 AM CDT Prostate cancer (HCC) CBC WITH AUTO DIFFERENTIAL Routine 07/09/2025 8:08 AM CDT Diffuse large B-cell lymphoma of lymph nodes of multiple regions (HCC) COMPREHENSIVE METABOLIC PANEL Routine 07/09/2025 8:08 AM CDT Diffuse large B-cell lymphoma of lymph nodes of multiple regions (HCC) LACTATE DEHYDROGENASE Routine 07/09/2025 8:08 AM CDT Diffuse large B-cell lymphoma of lymph nodes of multiple regions (HCC) CT CHEST ABDOMEN PELVIS W CONTRAST Schedule MIGUEL A, Read MIGUEL A (Appt Today, Awaiting Results) 07/09/2025 7:47 AM CDT Diffuse large B-cell lymphoma of lymph nodes of multiple regions (HCC) HEPATITIS C ANTIBODY Routine 11/30/2022 1:00 PM SPARMAKER Diffuse large B-cell lymphoma of lymph nodes of multiple regions (HCC) from Last 3 Months or Most Recently Relevant to Health Maintenance Results * eGFR (07/09/2025 8:08 AM CDT) eGFR 78 >=60 mL/min/1. 73 m2 Comment: Interpretive Data Reference Interval Normal >/= 90 mL/min/1.73m2 Mildly decreased* 60 - 89 mL/min/1.73m2 Mildly to moderately decreased 45 - 59 mL/min/1.73m2 Moderately to severely decreased 30 - 44 mL/min/1.73m2 Severely decreased 15 - 29 mL/min/1.73m2 Kidney Failure < 15 mL/min/1.73m2 *Relative to young adult level Estimated glomerular filtration rate is determined by the 2020 CKD-EPI equation recommended by the National Kidney Foundation (A Unifying Approach to GFR Estimation: Recommendations of the NKF-ASK Task Force on Reassessing the Inclusion of Race in Diagnosing Kidney Disease, JASN 2020). The CKD-EPI equation should not be used for patients with unstable renal function and has not been validated in children and those over 70. Current interpretive data was last reviewed 2021. Blood 07/09/2025 8:08 AM CDT 07/09/2025 8:15 AM CDT Loan Miller DIALYSIS TECH LAB BLOOD ORDERABLES Final Result [facility] [place] [address] * Differential, auto (07/09/2025 8:08 AM CDT) Neutrophil abs 2.54 1.50 - 6.50 K/cumm Comment:Testing performed by : [facility], [facility] [place] [phone] Lymphocyte abs 1.45 0.80 - 3.30 K/cumm DIONTE LOPEZ Comment:Testing performed by : [facility], [address] [place] [phone] Monocyte abs 0.66 0.20 - 0.80 K/cumm [facility] Comment:Testing performed by : [facility], [address] [place] [phone] Eosinophil abs 0.17 0.00 - 0.50 K/cumm [facility] Comment:Testing performed by : [facility], [address] [place], [place] [phone] Basophil abs 0.02 0.00 - 0.10 K/cumm [facility] Comment:Testing performed by : [facility], [address] [place] [address] Neutrophil pct 52.4 % [facility] Comment: Interpretive Data Percent cell count reference ranges are not reported, since discordance with absolute values may lead to misinterpretation of CBC data. Current Interpretive Data was last revised on 2018. Testing performed by: [facility], [address] [place] [phone] Lymphocyte pct 30.0 % [facility] Comment: Interpretive Data Percent cell count reference ranges are not reported, since discordance with absolute values may lead to misinterpretation of CBC data. Current Interpretive Data was last revised on 2018. Testing performed by: [facility], [address] [place] [id number] Monocyte pct 13.6 % [facility] Comment: Interpretive Data Percent cell count reference ranges are not reported, since discordance with absolute values may lead to misinterpretation of CBC data. Current Interpretive Data was last revised on 2018. Testing performed by: [facility], [address] [place] [phone] Eosinophil pct 3.6 % [facility] Comment: Interpretive Data Percent cell count reference ranges are not reported, since discordance with absolute values may lead to misinterpretation of CBC data. Current Interpretive Data was last revised on 2018. Testing performed by: [facility], [address] [place] [phone] Basophil pct 0.5 % [facility] Comment: Interpretive Data Percent cell count reference ranges are not reported, since discordance with absolute values may lead to misinterpretation of CBC data. Current Interpretive Data was last revised on 2018. Testing performed by: [facility], [address] [place] [address] Blood 07/09/2025 8:08 AM CDT 07/09/2025 8:14 AM CDT us Loan Miller DIALYSIS TECH LAB BLOOD ORDERABLES Final Result [facility] [place] [address] * (ABNORMAL) CBC with auto differential (07/09/2025 8:08 AM CDT) WBC 4.85 3.80 - 9.90 K/cumm Comment:Testing performed by : [facility], [address] [place] [address] Hgb 13.1 13.0 - 17.5 g/dL DIONTE LOPEZ Comment:Testing performed by : [facility], [address] [place] [address] Hct 36.7(L) 38.9 - 50.3 % DIONTE LOPEZ Comment:Testing performed by : [facility], [address] [place] [address] Plt 202 150 - 400 K/cumm DIONTE LOPEZ Comment:Testing performed by : [facility], [address] [place] [address] MPV 6.9 6.8 - 10.4 fL CERDALI BJ Comment:Testing performed by : [facility], [address] [place] [address] RBC 4.26(L) 4.30 - 5.80 M/cumm DIONTE LOPEZ Comment:Testing performed by : [facility], [address] [place] [address] MCV 86.2 81.3 - 96.4 fL CERDALI LOPEZ Comment:Testing performed by : [facility], [address] [place] [phone] MCH 30.7 27.1 - 33.3 pg DIONTE LOPEZ Comment:Testing performed by : [facility], [address] [place], [place] [phone] MCHC 35.6 32.3 - 35.7 g/dL DIONTE LOPEZ Comment:Testing performed by : [facility], [address] [place], [place] [phone] RDW CV 13.9 11.1 - 14.9 % DIONTE LOPEZ Comment:Testing performed by : [facility], [address] [place], [place] [phone] NRBC abs 0.00 0.00 - 0.01 K/cumm DIONTE LOPEZ Comment:Testing performed by : [facility], [address] [place], [place] [phone] Blood 07/09/2025 8:08 AM CDT 07/09/2025 8:14 AM CDT us Loan Miller DIALYSIS TECH LAB BLOOD ORDERABLES Final Result DIONTE LOPEZ [facility] [place] [address] * (ABNORMAL) PSA diagnostic (07/09/2025 8:08 AM CDT) PSA-Total 9.37(H) <=5.40 ng/mL Comment: Interpretive Data AGE SEX REFERENCE INTERVAL 0 minutes-150 years Female None 0 minutes-49 years Male None 50-59 years Male 0-3.90 60-69 years Male 0-5.40 70-79 years Male 0-6.20 80-150 years Male 0-6.20 The George PSA Total assay procedure was used. Results from different manufacturers or methods may not be comparable. Serial testing should be performed using the same method. Current interpretive data last revised 22. Blood 07/09/2025 8:08 AM CDT 07/09/2025 8:15 AM CDT Franco Smallwood MD LAB BLOOD ORDERABLES Final Res ult [facility] [place] [address] * Lactate dehydrogenase (LD) (07/09/2025 8:08 AM CDT) Pathologist [facility] Lactate dehydrogenase (LDH) 150 100 - 250 Units/L Blood 07/09/2025 8:08 AM CDT 07/09/2025 8:15 AM CDT Loan Miller NP LAB BLOOD ORDERABLES Final Result Performing Organization Address [facility] Co de Phone Number [facility] [place] [address] * Comprehensive metabolic panel (07/09/2025 8:08 AM CDT) [facility] Sodium 140 135 - 145 mmol/L Potassium, pl 4.0 3.3 - 4.9 mmol/L [facility] Chloride 104 97 - 110 mmol/L [facility] CO2 26 22 - 32 mmol/L [facility] Anion gap 10 2 - 15 mmol/L [facility] BUN 20 6 - 25 mg/dL [facility] Creatinine 1.04 0.80 - 1.30 mg/dL [facility] Glucose 97 70 - 199 mg/dL [facility] Comment: Interpretive Data Fasting glucose >/= 126 mg/dl is diagnostic for diabetes. Fasting is defined as no caloric intake for at least 8 hours. Fasting glucose between 100 mg/dl to 125 mg/dl is diagnostic of prediabetes. In a patient with classic symptoms of hyperglycemia or hyperglycemic crisis, a random glucose >/= 200 mg/dl is diagnostic for diabetes. In the absence of unequivocal hyperglycemia, results should be confirmed by repeat testing. The classification and Diagnosis of Diabetes Diabetes Care 2021; 46: S19-S40. Current interpretive data was last revised 2022. Calcium 9.4 8.5 - 10.3 mg/dL [facility] Bilirubin, total 0.4 0.1 - 1.2 mg/dL [facility] Protein, pl 7.1 6.5 - 8.5 g/dL [facility] Albumin 4.5 3.5 - 5.0 g/dL [facility]ERNER [facility] Alk phos 83 40 - 130 Units/L [facility] ALT 25 7 - 55 Units/L [facility] AST 21 10 - 50 Units/L [facility] Blood 07/09/2025 8:08 AM CDT 07/09/2025 8:15 AM CDT us Loan Miller NP LAB BLOOD ORDERABLES Final Result [facility] [place] [address] * CT Chest Abdomen Pelvis W Contrast (07/09/2025 7:47 AM CDT) Anatomical Region Laterality Modality Body N/A Computed Tomogra phy 07/09/2025 8:34 AM CDT Impressions 07/09/2025 8:36 AM CDT 1. No evidence of recurrent/residual disease. No evidence of metastatic disease in the chest, abdomen, or pelvis. Dictated by: Sarina Brown M.D. The radiology attending physician has personally reviewed this study, and had reviewed and/or edited this written report and agrees with it. Electronically signed by: Chip Schilling M.D. 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 COMPARISON: 07/26/2024 PET/CT and 07/03/2024 CT FINDINGS: Chest: No pleural effusion or pneumothorax. No suspicious pulmonary nodules. Heart size is within normal limits. No pericardial effusion. The thoracic aorta and pulmonary artery are of normal course and caliber. Coronary artery atherosclerotic calcifications. No mediastinal, hilar, supraclavicular, or axillary lymphadenopathy. The imaged thyroid is unremarkable. The esophagus is of normal course and caliber. Abdomen/Pelvis: Unchanged cyst in hepatic segment 6. The gallbladder is normal. No biliary ductal dilation. The pancreas and the spleen are normal. The adrenals are normal. The right kidney is atrophic. Nonobstructing stones in both kidneys. The previously seen hyperdense lesion in the mid portion of the right kidney is no longer seen on today's exam. No hydronephrosis. The urinary bladder is normal. The prostate is mildly enlarged. The small and large bowel are of normal course and caliber. Colonic diverticulosis without diverticulitis. The appendix is normal. No intraperitoneal free air or fluid. The abdominal aorta is of normal course and caliber. The portal, splenic, superior mesenteric vein are patent. No abdominal or pelvic lymphadenopathy. The previously seen diaphragmatic nodule with soft tissue density that has mild mass effect on the adjacent posterior hemiliver appears similar in size and measures 3.7 cm and is best seen on series 2 image 169 and series 6 image 28. This lesion is better characterized on 07/26/2024 PET/CT where it was non FDG avid and favored to be benign. No suspicious osseous lesions. 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 COMPARISON: 07/26/2024 PET/CT and 07/03/2024 CT FINDINGS: Chest: No pleural effusion or pneumothorax. No suspicious pulmonary nodules. Heart size is within normal limits. No pericardial effusion. The thoracic aorta and pulmonary artery are of normal course and caliber. Coronary artery atherosclerotic calcifications. No mediastinal, hilar, supraclavicular, or axillary lymphadenopathy. The imaged thyroid is unremarkable. The esophagus is of normal course and caliber. Abdomen/Pelvis: Unchanged cyst in hepatic segment 6. The gallbladder is normal. No biliary ductal dilation. The pancreas and the spleen are normal. The adrenals are normal. The right kidney is atrophic. Nonobstructing stones in both kidneys. The previously seen hyperdense lesion in the mid portion of the right kidney is no longer seen on today's exam. No hydronephrosis. The urinary bladder is normal. The prostate is mildly enlarged. The small and large bowel are of normal course and caliber. Colonic diverticulosis without diverticulitis. The appendix is normal. No intraperitoneal free air or fluid. The abdominal aorta is of normal course and caliber. The portal, splenic, superior mesenteric vein are patent. No abdominal or pelvic lymphadenopathy. The previously seen diaphragmatic nodule with soft tissue density that has mild mass effect on the adjacent posterior hemiliver appears similar in size and measures 3.7 cm and is best seen on series 2 image 169 and series 6 image 28. This lesion is better characterized on 07/26/2024 PET/CT where it was non FDG avid and favored to be benign. No suspicious osseous lesions. IMPRESSION: 1. No evidence of recurrent/residual disease. No evidence of metastatic disease in the chest, abdomen, or pelvis. Dictated by: Sarina Brown M.D. The radiology attending physician has personally reviewed this study, and had reviewed and/or edited this written report and agrees with it. Electronically signed by: Chip Schilling M.D. Loan Miller DIALYSIS TECH IMG CT PROCEDURES Fi nal Result * Hepatitis C antibody (11/30/2022 1:00 PM SPARMAKER) Hep C Ab Nonreactive Nonreactive DIONTE LOPEZ Comment:Antibodies to HCV no t detected. Does NOT exclude the possibility of recent exposure to HCV. Current interpretive data was last revised on 22 Blood 11/30/2022 1:00 PM SPARMAKER 11/30/2022 1:34 PM SPARMAKER Shanda Mccullough MD LAB MICROBIOLOGY - GENERAL ORDERABLES Final Result DIONTE LOPEZ [facility] [place] [address] from Last 3 Months or Most Recently Relevant to Health Maintenance Insurance [facility] MEDICARE ADVANTAGE UHC MEDICARE ADVANTAGE [facility] MEDICARE ADVANTAGE [facility] MEDICARE ADVANTAGE TRANSPLANT [employer] MEDICARE RISK TRANSPLANT [employer] MEDICARE RISK Advance Directives For more information, please contact: [phone] Documents on File Type Date Recorded Patient Bus Monitor Expl anation ADVANCE DIRECTIVE 11/27/2022 1:27 PM POWER OF RELIEF WORKER-MEDICAL * Full Code (Latest Code Status on File) Date Activated Date Inactivated Comments 01/09/2025 12:03 AM 01/11/2025 2:48 PM * Full Code Date Activated Date Inactivated Comments 07/07/2023 8:23 PM 07/15/2023 6:58 PM * Full Code Date Activated Date Inactivated Comments 05/26/2023 3:35 PM 06/21/2023 10:53 PM * Full Code Date Activated Date Inactivated Comments 05/22/2023 12:54 PM 05/23/2023 4:42 AM * Full Code Date Activated Date Inactivated Comments 04/13/2023 2:10 PM 04/19/2023 9:07 PM Care Teams Orthopedic Nurse Relationship Specialty Start Date End Date Jarett Temple MD [facility] [address] [place] [address] PCP - General Family Practice 02/25/25 Darrin Cagle MD [address] [place] [address] Urology 10/31/22 Shanda Mccullough MD [address] [facility] [address] [place] [address] Medical Oncologist/Pump Servicer Supervisor Medical Oncology 02/01/23 [place] [address] [place] [id number] Consulting Physician Medical Oncology 04/14/23
--- OUTSIDE RECORDS SUMMARY | 2025-08-12 08:07 | XMS_ITS | Clinical Summary ---
Author Organization [facility] Address [address] [place]: Sara Prelude ADT [place] [address] Care Team Providers Care Unified Communications Engineer Name Role Phone Unavailable Primary Care Provider Unavailabl e Allergies No known active allergies Medications sennosides-docu sate sodium (SENNA-S) 8.6-50 mg tablet Take 1 tablet by mouth 2 (two) times a day 60 Tablet 11/24/19 23 Active acyclovir (ZOVIRAX) 400 mg tablet Take 1 Tablet (400 mg) by mouth 2 times daily. 60 Tablet 11 3 3:05 PM CDT 11/30/19 23 Active omeprazole (PriLOSEC) 40 mg Capsule, Delayed Release(E.C.) Take 1 Capsule (40 mg) by mouth daily. 30 Capsule 5 3 11:50 AM CDT 11/30/19 23 Active ondansetron (ZOFRAN) 8 mg Tablet Take 1 tablet (8 mg total) by mouth every 8 (eight) hours as needed for nausea or vomiting Use if prochlorperazine does not stop nausea. 24 Tablet 3 3 5:22 PM NEGATIVE CLEANER 11/30/19 23 Active prochlorperazin e maleate (COMPAZINE) 10 mg tablet Take 1 tablet (10 mg total) by mouth every 6 (six) hours as needed for nausea or vomiting. Use first for nausea. 30 Tablet 3 3 5:22 PM NEGATIVE CLEANER 11/30/19 23 Active sulfamethoxazol e-trimethoprim (BACTRIM DS) 800-160 mg tablet Take 1 tablet by mouth 3 (three) times a week. Take every Monday, Monday and Monday. 12 Tablet 5 3 3:51 PM CDT 12/05/19 23 Active amLODIPine (NORVASC) 10 mg tablet Take 1 Tablet (10 mg) by mouth daily. 90 Tablet 3 4:39 PM NEGATIVE CLEANER 01/12/20 23 Active magnesium oxide (MAG-OX) 400 mg (241.3 mg magnesium) tablet Take 1 Tablet (400 mg) by mouth daily. 30 Tablet 11 3 11:48 AM CDT 02/02/20 23 Active levoFLOXacin (LEVAQUIN) 750 mg tablet Take 1 tablet (750 mg total) by mouth daily for 7 days 7 Tablet 3 5:25 PM CDT 03/13/20 23 Active predniSONE (DELTASONE) 20 mg tablet Take 7 tablets (140 mg) by mouth 2 (two) times a day for 5 days. Days 1-5 of each 21-day treatment cycle. 70 Tablet 3 4:17 PM CDT 03/23/20 23 Active sodium bicarbonate 650 mg tablet Take 2 tablets (1,300 mg total) by mouth 4 (four) times a day 45 Tablet 3 3 4:17 PM CDT 03/23/20 23 Active valACYclovir (VALTREX) 1 gram tablet Take 1 tablet (1,000 mg total) by mouth 2 (two) times a day for 7 days. Remember to hold acyclovir while taking this medication; once complete, you can resume acyclovir as before. 14 Tablet 3 6:41 PM CDT 04/19/20 23 Active amiodarone (CORDARONE) 200 mg tablet Take 1 Tablet (200 mg) by mouth daily at 8 AM. 20 Tablet 3 12:33 PM CDT 06/28/20 23 Active cholecalciferol , vitamin D3, 1,000 unit Take 1 Tablet (1,000 Units) by mouth daily at bedtime. 14 Tablet 06/28/20 23 Active lactulose (ENULOSE) 10 gram/15 mL 10 gram/15 mL solution Take 15 mL by mouth 1 time daily as needed. 15 mL 06/28/20 23 Active metoprolol tartrate (LOPRESSOR) 25 mg tablet Take 0.5 Tablets (12.5 mg) by mouth 2 times daily. 60 Tablet 3 11:53 AM CDT 06/28/20 23 Active polyethylene glycol (MIRALAX) 17 gram Powder in Packet Dissolve 1 Packet (17 Grams) by mouth daily as directed in the morning. 14 Each 06/28/20 Active potassium chloride (MICRO-K EXTENCAPS) 10 mEq Extended Release capsule Take 2 Capsules (20 mEq) by mouth 2 times daily. 20 Capsule 3 4:03 PM CDT 06/28/20 Active sennosides-docu sate sodium (SENNA-S) 8.6-50 mg tablet Take 1 Tablet by mouth daily at bedtime. 7 Tablet 06/28/20 Active tamsulosin (FLOMAX) 0.4 mg capsule Take 1 Capsule (0.4 mg) by mouth daily in the morning. 14 Capsule 3 4:03 PM CDT 06/28/20 Active lactulose (ENULOSE) 10 gram/15 mL (15 mL) Solution Take 15 mL by mouth 1 time daily as needed. 15 mL 06/28/20 Active potassium chloride (MICRO-K EXTENCAPS) 10 mEq Extended Release capsule Take 1 Capsule (10 mEq) by mouth 2 times daily. 20 Capsule 06/28/20 Active amiodarone (CORDARONE) 200 mg tablet Take 1 Tablet (200 mg) by mouth daily. 30 Tablet 3 2:05 PM CDT 06/29/20 Active famotidine (PEPCID) 20 mg tablet Take 1 tablet (20 mg total) by mouth daily 30 Tablet 4 3:51 PM CDT 06/29/20 Active metoprolol tartrate (LOPRESSOR) 25 mg tablet Take 0.5 tablets (12.5 mg total) by mouth 2 (two) times a day 30 Tablet 06/29/20 Active polyvinyl alcohol-povidon ,PF, (Refresh Classic, PF,) 1.4-0.6 % solution Administer 2 drops into both eyes every 4 (four) hours as needed for dry eyes 30 Each 06/29/20 Active potassium chloride (KLOR-CON) 20 mEq Extended Release tablet Take 1 tablet (20 mEq total) by mouth 2 (two) times a day 60 Tablet 3 12:33 PM CDT 06/29/20 Active valACYclovir (VALTREX) 500 mg tablet Take 1 tablet (500 mg total) by mouth daily 30 Tablet 4 11:08 AM CDT 08/17/20 23 Active nystatin (MYCOSTATIN) 100,000 unit/gram Cream Apply topically twice daily. 30 Gram 2 3 4:47 PM CDT 07/05/20 23 Active clobetasoL (TEMOVATE) 0.05 % Cream Apply topically 2 (two) times a day to buttocks 30 Gram 2 4 3:51 PM CDT 08/09/20 23 Active metoprolol tartrate (LOPRESSOR) 25 mg tablet Take 0.5 Tablets (12.5 mg) by mouth 2 times daily. 90 Tablet 3 4 3:21 PM NEGATIVE CLEANER 08/29/20 23 Active azithromycin (ZITHROMAX) 250 mg tablet TAKE 2 TABLETS BY MOUTH ON DAY 1, THEN TAKE 1 TABLET BY MOUTH DAILY ON DAYS 2-5 6 Tablet 4 2:32 PM NEGATIVE CLEANER 11/20/19 24 Active tamsulosin (FLOMAX) 0.4 mg capsule Take 1 capsule by mouth daily 30 Capsule 11 4 3:51 PM CDT 02/08/20 24 Active Immunizations Immunization Administration Dates Next Due INFLUENZA VACCINE HIGH DOSE QUADRIVALENT 65 YR U P PF IM 10/10/2023 Social History Tobacco Use Types Packs/Day Years Used Date Smoking Tobacco: Never Assessed Sex and Gender Information Value Date Recorded Sex Assigned at Not on file Legal Sex Male 3:26 PM CDT Gender Identity Not on file Sexual Orientation Not on file Plan of Treatment Health Maintenance Due Date Last Done Comments DTAP/TDAP/TD VACCINES (1 - Tdap) 1974 COLORECTAL SCREENING 2000 Colorectal Cancer Screening 2000 FIT-DNA Q 3 years 2000 FIT/FOBT Q 1 year 2000 Flex Sig/CT Colonography Q 5 years 2000 PNEUMOCOCCAL VACCINE 50+ YEARS (1 of 1 - PCV) 11/02/20 05 ZOSTER VACCINE (1 of 2) 2005 INFLUENZA VACCINE (#1) 2025 10/10/2023 RSV VACCINE (60+ or ) (1 - 1-dose 75+ series) 2030 Insurance UNKNOWN [place] [id number] RX [employer] RX Member Subscriber Plan / Payer (Ef fective 2020-Present) Name:GINI HOPKINS Relation to Subscriber:Self Name:Gini Hopkins Payer ID:Not on file Group ID:[id number] Type:RX Medicare Part D Address: [place] RX [employer] PLANS (INTERNAL) [facility]
--- OUTSIDE RECORDS SUMMARY | 2025-08-12 08:07 | XMS_ITS | Encounter Summary ---
Author Organization [facility] Address [address] [place] [address] Phone Care Team Providers Care Scientific Writer Name Role Phone Darrin Cagle MD Unavailable [phone] Shanda Mccullough MD Unavailable [phone] Marvin Allen DO Primary Care Provider [phone] Gilma Hutchins MD Unavailable [phone] Jarett Temple MD Primary Care Provider Encounter Details Date Type Department Care Team (Latest Contact Info) Description 05/07/2024 Orders Only [facility] Scanning, Provider Social History Tobacco Use Types Packs/Day Years Used Date Smoking Tobacco: Never Passive Smoke Exposure: Never Smokeless Tobacco: Never OASIS D0700: Social Isolation Answer Da te [...] week 07/08/2023 How often do you attend [facility] or orthodoxy services? 1 to 4 times per year 07/08/2023 Do you belong to any clubs o r organizations such as adventism groups, unions, fraternal or athletic groups, or school groups? No 07/08/2023 How often do you attend meet ings of the clubs or organizations you belong to? Never 07/08/2023 Are you , , di vorced, , never , or living with a partner? 07/08/2023 AUDIT-C Answer Date Recorded Q1: How often do you have a drink containing alc ohol? 2-3 times a week 12/07/2022 Q2: How many drinks containi ng alcohol do you have on a typical day when you are drinking? 1 or 2 12/07/2022 Q3: How often do you have si x or more drinks on one occasion? Never 12/07/2022 Overall Financial Resource Strain (CARDIA) Answe r Date Recorded How hard is it for you to pa y for the very basics like food, housing, medical care, and heating? Not hard at all 07/08/2023 PHQ-2 Answer Date Recorded PHQ-2 Total Score 0 07/08/2023 [facility] [place] of Occupat ional Health - Occupational Stress [...] place to sleep or slept in a long term (including now)? No 07/08/2023 Personal Safety Answer Date Recorded Have you ever been in or are you currently in a harmful physical or emotional relationship or is someone making you feel afraid or unsafe? 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 Gender Identity Not on file Sexual Orientation Not on file documented as of this encounter Plan of Treatment Not on file documented as of this encounter Procedures Procedure Name Priority Date/Time Associated Diagnosis Comments GI - RESULT 05/07/2024 documented in this encounter Results * GI - RESULT (05/07/2024) Anatomical Region Laterality Modality Other us Provider Scanning Final Result documented in this encounter Visit Diagnoses Not on filedocumented in this encounter Care Teams Scientific Writer Relationship Specialty Start Date End Date Marvin Allen DO [address] [facility] [address] [place] [address] PCP - General Family Medicine 10/31/22 02/24/25 Jarett Temple MD [address] [facility] [address] [place] [address] PCP - General Family Practice 02/25/25 Darrin Cagle MD [address] [place] [address] Urology 10/31/22 Shanda Mccullough MD [address] [facility] [address] [place], [place] [id number] Medical Oncologist/Descriptive Catalog Librarian Medical Oncology 02/01/23 Gilma Hutchins MD [id number] [place], [place] [id number] Consulting Physician Medical Oncology 04/14/23 documented as of this encounter
--- OUTSIDE RECORDS SUMMARY | 2025-08-12 08:07 | XMS_ITS ---
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 Patient likely to benefit from [facility] counseling consult while inpatient. Please consider bundling care to reduce nighttime interruptions and offering ramelteon p.r.n. term improved sleep, as patient reports adequate sleep has been effective in improving his overall mood. Recommendations: - defer antidepressant medication - bundle nighttime care - offer ramelteon q.h.s. p.r.n. for sleep - [facility] counseling consult - ambulatory referral to [facility] Psychiatry on discharge (please specify [...] 04/15/2023 Assessment & Plan (01/09/2025 2:52 AM RUBBER GRINDER): On admission, BUN/Cr- 21/1.38, b/l Cr-0.9 Noted [...] PM CDT): Prostate biopsy on 09/04/2022 showing Bradshaw 6 in 3 of the 15 cores. Pending treatment for his prostate cancer once he has completed his stem cell transplant. - currently on observation. - normal psa and testosterone levels on admission. Assessment & Plan (06/04/2023 8:10 PM CDT): Dx'ed in 08/2022 w/ Jacqueline 6 in 3/15 cores. - Currently on observation. - Rx pending completion of SCT. Assessment & Plan (04/14/2023 2:17 PM CDT): diagnosed 09/03/2022, Bradshaw 6, plan observation until completion of treatment for lymphoma. PSA 8.5. 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 The patient previously received 6 cycles of DA-EPOCH-R along with 8 cycles of intrathecal methotrexate followed by 1 cycle of high-dose methotrexate for GREEN END WORKER prophylaxis. He then underwent autologous BEAM SCT on 06/02/2023. Most recent PET-CT from 07/2024 was remarkable for ongoing complete metabolic response. Currently remains on surveillance with complete remission. F/u BMT recs Hyperlipidemia 08/22/2016 Assessment & Plan (01/09/2025 2:39 AM RUBBER GRINDER): Continue pravastatin 40 mg p.o. q.d. Assessment & Plan (07/08/2023 7:10 PM CDT): C/w home statin. Assessment & Plan (06/04/2023 8:11 PM CDT): - Continue home pravastatin. Assessment & Plan (04/13/2023 4:24 PM CDT): Cont statin Hypertension 01/23/2015 Overview (02/22/2018): Impression: good Assessment & Plan (01/09/2025 2:39 AM RUBBER GRINDER): Continue amlodipine 10 mg p.o. q.d. 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 Post-SCT Vaccinations (Medicare)* Plan Start Date:01/03/2024 Plan Provider:Shanda Mccullough MD Linked Problems Autologous donor of stem mukesh lsDiffuse large B-cell lymphoma of lymph nodes of multiple regions (HCC) Treatment Medications Current Day (Day 1 , 7th Series (at least 27 months post-SCT) - (optional MMR / VARIVAX) - Planned for 01/07/2026) No medications scheduled. No medications schedul ed. Past Treatment and Therapy Plans BMT/ONC IP BLOOD PRODUCTS Plan Name Start Date Discontinue Date Treatment Medications Discontinue Reason Plan Provider BMT ADULT BLOOD AND PLATELET ADMINISTRATION FOR INPATIENT 04/17/2023 04/19/2023 No medications scheduled. Patient Discharged Emilio Phelan MD Oncology Chemotherapy Treatment Plan Name Start Date Discontinue Date Treatment Medications Discontinue Reason Plan Provider Cycles BMT - Standard Hematopoietic Progenitor Cell Mobilization (Auto) Standard GCSF and Plerixafor (Mozobil) 05/19/2006/15/2023 plerixafor (MOZOBIL) Therapy Complete Gilma Hutchins MD 1 of 1 cycle started INPT - High-Dose Methotrexate 14 Day Cycles - Lymphoma 04/13/20 23 04/27/2023 leucovorinmethotrexat emethotrexate IVPB in 1,000 mL Toxicity/Com plication Shanda Mccullough MD 1 of 2 cycles started OUTPT Dose-Adjusted R-EPOCH (RiTUXimab / Etoposide / PredniSONE / VinCRIStine / Cyclophosphamid e / DOXOrubicin) 21 Day Cycles - Diffuse Large B-Cell Lymphoma 023 04/13/2023 cycloPHOSphamide IVPB in 250 mL (vial 200 mg/mL)([id number])DOXOrubi kierra (ADRIAMYCIN), etopophos, and vinCRIStine infusionmethotrexate- hydrocortisone (PF) intrathecalriTUXimab- pvvr (RUXIENCE) IVPB in 500 mL Therapy Complete Shanda Mccullough MD 6 of 6 cycles started R-CHOP: RiTUXimab / Cyclophosphamid e / DOXOrubicin (ADRIAMYCIN) / VinCRIStine / PredniSONE 21 Day Cycles - DLBCL 023 12/02/2022 cycloPHOSphamide (CYTOXAN)DOXOrubicin (ADRIAMYCIN)riTUXimab -pvvr (RUXIENCE)vinCRIStine Provider Discretion Shanda Mccullough MD Treatment not started Oncology Supportive Care Therapy Plan Plan Name Start Date Discontinue Date Treatment Medications Discontinue Reason Plan Provider Zarxio 09/06/2023 10/02/2023 No medications scheduled. Therapy Complete Shanda Mccullough MD Oncology Treatment (2) Plan Name Start Date Discontinue Date Treatment Medications Discontinue Reason Plan Provider Cycles INPT - BEAM (carmustine / etoposide / cytarabine / melphalan) - BMT - Lymphoma 07/03/2023 carmustine (BICNU) IVPB in 1,000 mLcytarabine (ZAYRA-C) IVPB (for doses <1,000 mg/m2)etoposide (VEPESID) IVPB in 750 mLmelphalan (ALKERAN) IVPB in 250 mL Therapy Complete Gilma Hutchins MD 1 of 1 cycle started PHERESIS Plan Name Start Date Discontinue Date Treatment Medications Discontinue Reason Plan Provider Apheresis Cellular Therapy Cell Collection 05/23/2023 07/03/2023 No medications scheduled. Therapy Complete Gilma Hutchins MD Lifetime Dose Tracking * Chemical Lifetime Dose Automatic Entry Manual Entr y doxorubicin 210.464 mg/m2 (478 mg) 210.464 mg/m2 (478 mg) 0 mg/m2 (0 mg) Fluoro Time 3.5 minutes 3.5 minutes 0 minutes cyclophosphamide 4,824.048 mg/m2 (11,000 mg) 4,824.048 mg/m2 (11,000 mg) 0 mg/m2 (0 mg) carmustine 277.7 mg/m2 (610.939 mg) 277.7 mg/m2 (610.939 mg) 0 mg/m2 (0 mg) etoposide 723.585 mg/m2 (1,600 mg) 723.585 mg/m2 (1,600 mg) 0 mg/m2 (0 mg) etoposide phosphate 1,048.639 mg/m2 (2,381.6 mg) 1,048.639 mg/m2 (2,381.6 mg) 0 mg/m2 (0 mg) doxorubicin isotoxic equivalent (Please manually verify calculation) 210.464 mg/m2 (478 mg) 210.464 mg/m2 (478 mg) 0 mg/m2 (0 mg) Air kerma at the reference point (Ka,r) 111 mGy 111 mGy 0 mGy DLP 5,032 mGycm 5,032 mGycm 0 mGycm Resolved Problems Problem Noted Date Diagnosed Date [...] withatypical MYC, bulky stage IIEA, IPI 2, GREEN END WORKER IPI 3, initial sites of disease right [...] kidney biopsy, bulky stage IIEA, IPI 2, GREEN END WORKER IPI 3, initial sites of disease right [...]
[2025-08-12 13:07] LABS: Hematocrit 41.0 % (42.0-52.0); Hemoglobin 13.0 g/dL (14.0-18.0); Immature Granulocyte Percent A 0.4 % (0-0.5); Lymphocytes Absolute Auto 1.73 K/mm3 (0.9-3.2); Mean Corpuscular HGB Conc 31.7 g/dl (32-36); Mean Corpuscular Hemoglobin 29.6 pg (26-34); Mean Corpuscular Volume 93.4 fl (80-100); Nucleated Red Blood Cells Absolute Auto 0.000 K/mm3 (0.0-0.012); Nucleated Red Blood Cells Perc 0.0 % (0.0-0.2); Platelet Count Result 193 k/mm3 (150-375); Red Blood Count 4.39 M/mm3 (4.6-6.20); White Blood Count 5.3 K/mm3 (4.5-10.0)
[2025-08-12 13:14] LABS: Alanine Aminotransferase 25 U/L (6-50); Albumin Level 4.4 g/dL (3.5-5.1); Alkaline Phosphatase 83 U/L (38-126); Anion Gap 8 mmol/L (4-12); Aspartate Amino Transferase 41 U/L (17-59); Bilirubin,Total 0.6 mg/dL (0.2-1.3); Blood Urea Nitrogen 18 mg/dL (9-20); Calcium 9.0 mg/dL (8.4-10.2); Carbon Dioxide 27 mmol/L (22-30); Chloride 105 mmol/L (98-107); Cholesterol 136 mg/dL (0-200); Estimated Glomerular Filt Rate > 60; Glucose 89 mg/dL (65-110); HDL Direct 40 mg/dL; Potassium 4.5 mmol/L (3.4-5.0); Sodium 140 mmol/L (137-145); Total Protein 7.1 g/dL (6.3-8.2); Triglycerides 105 mg/dL (<150)
[2025-08-12 13:42] LABS: Thyroid Stimulating Hormone Reflex 1.140 uIU/mL (0.465-4.68)
== END 2025-08-12 07:58 | disposition home or self-care (01) ==
LOC: ANHGOSHLAB 07:58
PROVIDERS: PCP Family Medicine; Visit Provider Nurse Practitioner Family
DX: E55.9 Vitamin D deficiency, unspecified (principal); E78.5 Hyperlipidemia, unspecified; I10 Essential (primary) hypertension
CPT/HCPCS: 36415; 80053; 80061; 82306; 84443; 85025